=== PATIENT | male | born 1965 | race Caucasian/White ===

== ENCOUNTER 2018-12-19 17:51 | Inpatient (IN) ==
[2018-12-19] MEDS ORDERED: PIPERACILLIN/TAZOBACTAM 3,375 MG in SODIUM CHLORIDE 0.9% 100 ML IV STA (19:01)
[2018-12-19] MEDS ORDERED: SODIUM CHLORIDE 0.9% 500 ML IV STA (19:01)
[2018-12-19] MEDS ORDERED: ONDANSETRON 4 MG/2 ML VIAL IV STA (19:56)
[2018-12-19 20:04] LABS: Basophils % 0.2 % (0.0-0.8); Hematocrit 45.1 VOL% (42.0-52.0); Hemoglobin 14.4 GM/DL (14.0-18.0); Immature Granulocytes % 0.7 %; Immature Granulocytes Absolute 0.11 #; Lymphocytes # 0.3 10*3/uL (1.4-4.0); Lymphocytes % 1.7 % (21.2-54.2); Mean Corpuscular HGB Conc 31.9 GM/DL (32-36); Mean Corpuscular Volume 88.6 FL (87-102); Monocytes % 3.1 % (1.7-12.7); Neutrophils % 94.3 % (38.7-73.9); Platelet Count 248 T/CUMM (130-400); Red Blood Count 5.09 MC/CUMM (3.8-5.5); Red Cell Distribution Width 13.4 % (9.3-17.3); White Blood Count 16.9 T/CUMM (4-12)
[2018-12-19 20:23] LABS: Albumin 3.4 G/DL (3.4-5.0); Bilirubin,Total 0.9 MG/DL (0.2-1.0); Calcium 8.4 MG/DL (8.5-10.1); Osmolality,Calculated 259.8 MOS/KG (273-304); Total Protein 7.1 G/DL (6.4-8.3)
[2018-12-19 20:27] LABS: Amylase 19 U/L (25-115); Troponin I < 0.015 NG/ML (0.00-0.045)
[2018-12-19 20:44] LABS: Apearance,Urine Slightly Hazy (Clear); Bilirubin,Urine Negative (Negative); Blood, Urine Small mg/dL (Negative); Glucose,Urine (UA) Negative (Negative); Ketones,Urine 80 mg/dL (Negative); Mucus,Urine Many /LPF (Occasional); Nitrite,Urine Negative (Negative); Protein,Urine 100 MG/DL; RBC,Urine 18 /HPF (0-4); Squamous Epithelial Cell,Urine Occasional /HPF (0-10); Urine Specific Gravity 1.026 (1.001-1.035); WBC,Urine 1 /HPF (0-6)
[2018-12-19 20:45] LABS: Urine Color Yellow (Yellow)
[2018-12-19] MEDS ORDERED: CEFTAROLINE 600 MG in SODIUM CHLORIDE 0.9% 100 ML IV STA (20:59)
[2018-12-19 21:36] LABS: Microcytosis Slight; Segmented Neutrophils 92 % (50-85); Total Cells Counted 100
[2018-12-19 21:37] LABS: Platelet Estimate Adequate; Polychromasia Few; Stomatocytes 1+
[2018-12-19] MEDS: SODIUM CHLORIDE 0.9% 1,000 ML IV SCH (22:30)
[2018-12-19] MEDS: ENOXAPARIN 40 MG/0.4 ML SYRINGE SUBCUT SCH (22:30)
[2018-12-19] MEDS: KETOROLAC 15 MG/1 ML VIAL IV SCH (23:03)
[2018-12-20] MEDS ORDERED: CLINDAMYCIN 300 MG CAPSULE PO SCH
[2018-12-20] MEDS: VANCOMYCIN INJ 1,500 MG in SODIUM CHLORIDE 0.9% 500 ML IV SCH ×2 (00:40→14:54)
[2018-12-20] MEDS: ONDANSETRON 4 MG/2 ML VIAL IV PRN ×3 (00:47→15:00)
[2018-12-20] MEDS: KETOROLAC 15 MG/1 ML VIAL IV SCH ×3 (05:21→18:14)
[2018-12-20 05:52] LABS: Basophils % 0.2 % (0.0-0.8); Hematocrit 41.6 VOL% (42.0-52.0); Hemoglobin 13.1 GM/DL (14.0-18.0); Immature Granulocytes % 0.6 %; Immature Granulocytes Absolute 0.08 #; Lymphocytes # 0.4 10*3/uL (1.4-4.0); Lymphocytes % 3.5 % (21.2-54.2); Mean Corpuscular HGB Conc 31.5 GM/DL (32-36); Mean Corpuscular Volume 88.9 FL (87-102); Mean Platelet Volume 10.6 FL (9.6-12.0); Monocytes % 4.2 % (1.7-12.7); Neutrophils % 91.5 % (38.7-73.9); Platelet Count 208 T/CUMM (130-400); Red Blood Count 4.68 MC/CUMM (3.8-5.5); Red Cell Distribution Width 13.6 % (9.3-17.3); White Blood Count 12.6 T/CUMM (4-12)
[2018-12-20 06:10] LABS: Calcium 8.2 MG/DL (8.5-10.1); Osmolality,Calculated 262.5 MOS/KG (273-304)
[2018-12-20 06:16] LABS: Band Neutrophils 2 % (0-10); Hypochromasia 1+; Lymphocytes 3 % (20-55); Platelet Estimate Adequate; Segmented Neutrophils 87 % (50-85); Total Cells Counted 100
[2018-12-20 06:17] LABS: Microcytosis Slight
[2018-12-20] MEDS: CYCLOBENZAPRINE 10 MG TABLET PO SCH ×2 (10:33→20:59)
[2018-12-20] MEDS: GABAPENTIN 300 MG CAPSULE PO SCH ×2 (10:33→20:54)
[2018-12-20] MEDS: LITHIUM 300 MG CAPSULE PO SCH ×3 (10:34→20:54)
[2018-12-20] MEDS: SODIUM CHLORIDE 0.9% 1,000 ML IV SCH ×3 (10:34→20:54)
[2018-12-20] MEDS: ACETAMINOPHEN 325 MG TABLET PO PRN (19:19)
[2018-12-20] MEDS: ENOXAPARIN 40 MG/0.4 ML SYRINGE SUBCUT SCH (20:59)
[2018-12-21] MEDS: KETOROLAC 15 MG/1 ML VIAL IV SCH ×5 (00:17→23:46)
[2018-12-21] MEDS: VANCOMYCIN INJ 1,500 MG in SODIUM CHLORIDE 0.9% 500 ML IV SCH ×2 (00:18→11:50)
[2018-12-21] MEDS: SODIUM CHLORIDE 0.9% 1,000 ML IV SCH ×2 (06:19→21:26)
[2018-12-21] MEDS: GABAPENTIN 300 MG CAPSULE PO SCH ×2 (09:55→21:20)
[2018-12-21] MEDS: LITHIUM 300 MG CAPSULE PO SCH ×3 (09:55→21:25)
[2018-12-21] MEDS: CYCLOBENZAPRINE 10 MG TABLET PO SCH ×2 (09:55→21:24)
[2018-12-21] MEDS: cefTAZidime 1,000 MG in SYRINGE 1 EACH IV SCH ×2 (10:26→18:00)
[2018-12-21] MEDS: ACETAMINOPHEN 325 MG TABLET PO PRN ×2 (11:51→21:29)
[2018-12-21] MEDS: ENOXAPARIN 40 MG/0.4 ML SYRINGE SUBCUT SCH (21:25)
[2018-12-22] MEDS: VANCOMYCIN INJ 1,500 MG in SODIUM CHLORIDE 0.9% 500 ML IV SCH ×3 (00:17→23:24)
[2018-12-22] MEDS: cefTAZidime 1,000 MG in SYRINGE 1 EACH IV SCH ×3 (02:34→17:57)
[2018-12-22 04:55] LABS: Basophils % 0.3 % (0.0-0.8); Eosinophils # 0.3 10*3/uL (0.0-0.87); Eosinophils % 2.3 % (0.00-10.9); Hemoglobin 12.4 GM/DL (14.0-18.0); Immature Granulocytes % 0.3 %; Immature Granulocytes Absolute 0.03 #; Lymphocytes # 1.2 10*3/uL (1.4-4.0); Mean Corpuscular HGB Conc 31.8 GM/DL (32-36); Mean Corpuscular Volume 89.7 FL (87-102); Mean Platelet Volume 10.7 FL (9.6-12.0); Monocytes % 8.4 % (1.7-12.7); Neutrophils % 78.7 % (38.7-73.9); Platelet Count 227 T/CUMM (130-400); Red Blood Count 4.35 MC/CUMM (3.8-5.5); Red Cell Distribution Width 13.7 % (9.3-17.3); White Blood Count 11.6 T/CUMM (4-12)
[2018-12-22 05:37] LABS: Calcium 8.5 MG/DL (8.5-10.1); Osmolality,Calculated 280.1 MOS/KG (273-304)
[2018-12-22] MEDS: KETOROLAC 15 MG/1 ML VIAL IV SCH ×4 (06:05→23:16)
[2018-12-22] MEDS: SODIUM CHLORIDE 0.9% 1,000 ML IV SCH (06:06)
[2018-12-22] MEDS ORDERED: POTASSIUM CHLORIDE 20 MEQ TABLET PO ONE (08:45)
[2018-12-22] MEDS: CYCLOBENZAPRINE 10 MG TABLET PO SCH ×2 (09:54→21:12)
[2018-12-22] MEDS: GABAPENTIN 300 MG CAPSULE PO SCH ×2 (09:54→21:12)
[2018-12-22] MEDS: LITHIUM 300 MG CAPSULE PO SCH ×3 (09:54→21:12)
[2018-12-22] MEDS: ACETAMINOPHEN 325 MG TABLET PO PRN (16:33)
[2018-12-22] MEDS: ENOXAPARIN 40 MG/0.4 ML SYRINGE SUBCUT SCH (21:15)
[2018-12-23] MEDS: cefTAZidime 1,000 MG in SYRINGE 1 EACH IV SCH ×3 (01:43→17:45)
[2018-12-23 06:02] LABS: Basophils % 0.3 % (0.0-0.8); Eosinophils # 0.3 10*3/uL (0.0-0.87); Eosinophils % 2.3 % (0.00-10.9); Hematocrit 38.7 VOL% (42.0-52.0); Hemoglobin 12.3 GM/DL (14.0-18.0); Immature Granulocytes % 0.6 %; Immature Granulocytes Absolute 0.07 #; Lymphocytes # 0.8 10*3/uL (1.4-4.0); Lymphocytes % 7.4 % (21.2-54.2); Mean Corpuscular HGB Conc 31.8 GM/DL (32-36); Mean Corpuscular Volume 88.6 FL (87-102); Mean Platelet Volume 9.9 FL (9.6-12.0); Monocytes % 10.2 % (1.7-12.7); Neutrophils % 79.2 % (38.7-73.9); Platelet Count 261 T/CUMM (130-400); Red Blood Count 4.37 MC/CUMM (3.8-5.5); Red Cell Distribution Width 13.7 % (9.3-17.3); White Blood Count 10.9 T/CUMM (4-12)
[2018-12-23] MEDS: KETOROLAC 15 MG/1 ML VIAL IV SCH ×5 (06:21→22:09)
[2018-12-23 06:39] LABS: Calcium 8.6 MG/DL (8.5-10.1); Osmolality,Calculated 270.8 MOS/KG (273-304)
[2018-12-23] MEDS ORDERED: POTASSIUM CHLORIDE 20 MEQ TABLET PO ONE (09:00)
[2018-12-23] MEDS: GABAPENTIN 300 MG CAPSULE PO SCH ×2 (09:10→21:48)
[2018-12-23] MEDS: LITHIUM 300 MG CAPSULE PO SCH ×3 (09:10→21:48)
[2018-12-23] MEDS: CYCLOBENZAPRINE 10 MG TABLET PO SCH (09:10)
[2018-12-23] MEDS: LINEZOLID INJ 600 MG in PREMIX 1 EACH IV SCH (11:46)
[2018-12-23] MEDS: ENOXAPARIN 40 MG/0.4 ML SYRINGE SUBCUT SCH (21:48)
[2018-12-24] MEDS: LINEZOLID INJ 600 MG in PREMIX 1 EACH IV SCH ×3 (01:02→23:38)
[2018-12-24] MEDS: cefTAZidime 1,000 MG in SYRINGE 1 EACH IV SCH ×3 (01:02→17:45)
[2018-12-24] MEDS: KETOROLAC 15 MG/1 ML VIAL IV SCH ×3 (05:04→17:41)
[2018-12-24 05:24] LABS: Basophils % 0.2 % (0.0-0.8); Eosinophils # 0.3 10*3/uL (0.0-0.87); Eosinophils % 3.3 % (0.00-10.9); Hemoglobin 12.6 GM/DL (14.0-18.0); Immature Granulocytes % 0.7 %; Immature Granulocytes Absolute 0.07 #; Lymphocytes % 10.1 % (21.2-54.2); Mean Corpuscular HGB Conc 31.5 GM/DL (32-36); Mean Corpuscular Volume 88.7 FL (87-102); Mean Platelet Volume 10.2 FL (9.6-12.0); Monocytes % 11.7 % (1.7-12.7); Platelet Count 290 T/CUMM (130-400); Red Blood Count 4.51 MC/CUMM (3.8-5.5); Red Cell Distribution Width 13.6 % (9.3-17.3); White Blood Count 9.9 T/CUMM (4-12)
[2018-12-24 06:40] LABS: Calcium 8.8 MG/DL (8.5-10.1); Osmolality,Calculated 272.7 MOS/KG (273-304)
[2018-12-24] MEDS: GABAPENTIN 300 MG CAPSULE PO SCH ×2 (09:59→20:32)
[2018-12-24] MEDS: LITHIUM 300 MG CAPSULE PO SCH ×3 (10:02→20:32)
[2018-12-24] MEDS: amLODIPine 5 MG TABLET PO SCH (10:14)
[2018-12-24] MEDS: ACETAMINOPHEN 325 MG TABLET PO PRN (13:16)
[2018-12-24] MEDS: BISACODYL 5 MG TABLET PO PRN (16:32)
[2018-12-24] MEDS: ENOXAPARIN 40 MG/0.4 ML SYRINGE SUBCUT SCH (20:31)
[2018-12-24] MEDS: ONDANSETRON 4 MG/2 ML VIAL IV PRN (23:51)
[2018-12-25] MEDS: cefTAZidime 1,000 MG in SYRINGE 1 EACH IV SCH ×4 (01:53→18:46)
[2018-12-25 04:39] LABS: Basophils % 0.4 % (0.0-0.8); Eosinophils # 0.4 10*3/uL (0.0-0.87); Eosinophils % 3.6 % (0.00-10.9); Hematocrit 37.5 VOL% (42.0-52.0); Hemoglobin 11.9 GM/DL (14.0-18.0); Lymphocytes # 1.1 10*3/uL (1.4-4.0); Lymphocytes % 11.3 % (21.2-54.2); Mean Corpuscular HGB Conc 31.7 GM/DL (32-36); Mean Corpuscular Volume 87.6 FL (87-102); Mean Platelet Volume 9.8 FL (9.6-12.0); Monocytes % 9.1 % (1.7-12.7); Neutrophils % 74.6 % (38.7-73.9); Platelet Count 346 T/CUMM (130-400); Red Blood Count 4.28 MC/CUMM (3.8-5.5); Red Cell Distribution Width 13.4 % (9.3-17.3)
[2018-12-25 05:37] LABS: Calcium 8.9 MG/DL (8.5-10.1); Osmolality,Calculated 274.5 MOS/KG (273-304)
[2018-12-25] MEDS: ACETAMINOPHEN 325 MG TABLET PO PRN ×2 (07:00→18:46)
[2018-12-25] MEDS: amLODIPine 5 MG TABLET PO SCH (08:42)
[2018-12-25] MEDS: LITHIUM 300 MG CAPSULE PO SCH ×3 (08:42→21:35)
[2018-12-25] MEDS: GABAPENTIN 300 MG CAPSULE PO SCH ×2 (08:42→21:34)
[2018-12-25] MEDS ORDERED: cefTAZidime 1,000 MG in SYRINGE 1 EACH IV SCH (10:30)
[2018-12-25] MEDS: LINEZOLID INJ 600 MG in PREMIX 1 EACH IV SCH (11:43)
[2018-12-25] MEDS: ONDANSETRON 4 MG/2 ML VIAL IV PRN (18:46)
[2018-12-25] MEDS: ENOXAPARIN 40 MG/0.4 ML SYRINGE SUBCUT SCH (21:35)
[2018-12-26] MEDS: LINEZOLID INJ 600 MG in PREMIX 1 EACH IV SCH ×2 (01:07→11:34)
[2018-12-26] MEDS: ACETAMINOPHEN 325 MG TABLET PO PRN ×3 (03:39→16:29)
[2018-12-26] MEDS: cefTAZidime 1,000 MG in SYRINGE 1 EACH IV SCH (03:40)
[2018-12-26 04:54] LABS: Basophils % 0.3 % (0.0-0.8); Eosinophils # 0.4 10*3/uL (0.0-0.87); Eosinophils % 4.4 % (0.00-10.9); Hematocrit 39.8 VOL% (42.0-52.0); Hemoglobin 12.6 GM/DL (14.0-18.0); Immature Granulocytes % 0.8 %; Immature Granulocytes Absolute 0.07 #; Lymphocytes # 1.2 10*3/uL (1.4-4.0); Lymphocytes % 13.3 % (21.2-54.2); Mean Corpuscular HGB Conc 31.7 GM/DL (32-36); Mean Corpuscular Volume 88.6 FL (87-102); Mean Platelet Volume 9.8 FL (9.6-12.0); Monocytes % 10.1 % (1.7-12.7); Neutrophils % 71.1 % (38.7-73.9); Platelet Count 382 T/CUMM (130-400); Red Blood Count 4.49 MC/CUMM (3.8-5.5); Red Cell Distribution Width 13.3 % (9.3-17.3); White Blood Count 8.6 T/CUMM (4-12)
[2018-12-26 05:28] LABS: Osmolality,Calculated 272.7 MOS/KG (273-304)
[2018-12-26] MEDS: GABAPENTIN 300 MG CAPSULE PO SCH ×2 (08:48→21:21)
[2018-12-26] MEDS: LITHIUM 300 MG CAPSULE PO SCH ×3 (08:48→21:21)
[2018-12-26] MEDS: amLODIPine 5 MG TABLET PO SCH (08:49)
[2018-12-26] MEDS: cefTRIAXone 2,000 MG in SYRINGE 1 EACH IV SCH (11:30)
[2018-12-26] MEDS: ENOXAPARIN 40 MG/0.4 ML SYRINGE SUBCUT SCH (21:20)
[2018-12-26] MEDS: BISACODYL 5 MG TABLET PO PRN (21:21)
[2018-12-26] MEDS: ONDANSETRON 4 MG/2 ML VIAL IV PRN (23:14)
[2018-12-27] MEDS: LINEZOLID INJ 600 MG in PREMIX 1 EACH IV SCH ×2 (00:10→12:11)
[2018-12-27 05:18] LABS: Basophils % 0.4 % (0.0-0.8); Eosinophils # 0.4 10*3/uL (0.0-0.87); Eosinophils % 3.4 % (0.00-10.9); Hematocrit 42.1 VOL% (42.0-52.0); Immature Granulocytes % 0.9 %; Lymphocytes # 1.2 10*3/uL (1.4-4.0); Lymphocytes % 11.1 % (21.2-54.2); Mean Corpuscular HGB Conc 30.9 GM/DL (32-36); Mean Platelet Volume 9.6 FL (9.6-12.0); Monocytes % 9.5 % (1.7-12.7); Neutrophils % 74.7 % (38.7-73.9); Platelet Count 409 T/CUMM (130-400); Red Blood Count 4.73 MC/CUMM (3.8-5.5); Red Cell Distribution Width 13.4 % (9.3-17.3); White Blood Count 10.6 T/CUMM (4-12)
[2018-12-27 05:38] LABS: Calcium 9.2 MG/DL (8.5-10.1); Osmolality,Calculated 270.8 MOS/KG (273-304)
[2018-12-27] MEDS: amLODIPine 5 MG TABLET PO SCH (08:34)
[2018-12-27] MEDS: GABAPENTIN 300 MG CAPSULE PO SCH (08:34)
[2018-12-27] MEDS: LITHIUM 300 MG CAPSULE PO SCH (08:35)
[2018-12-27] MEDS: cefTRIAXone 2,000 MG in SYRINGE 1 EACH IV SCH (12:11)
[2018-12-27 12:49] VITALS: BP 143/93
[2018-12-27] MEDS: ACETAMINOPHEN 325 MG TABLET PO PRN (15:29)
== END 2018-12-27 16:20 | disposition home or self-care (01) | DRG 603 ==
LOC: N.ED 17:51 → N.EDINP 21:13 → N.3E 22:08
PROVIDERS: ADMIT Internal Medicine; ATTEND Internal Medicine

== ENCOUNTER 2019-04-14 12:53 | Inpatient (IN) ==
[2019-04-14 15:13] LABS: Basophils # 0.1 10*3/uL (0.0-0.2); Basophils % 0.9 % (0.0-0.8); Eosinophils # 0.3 10*3/uL (0.0-0.87); Eosinophils % 3.6 % (0.00-10.9); Hematocrit 47.1 VOL% (42.0-52.0); Hemoglobin 15.2 GM/DL (14.0-18.0); Immature Granulocytes % 0.3 %; Immature Granulocytes Absolute 0.02 #; Lymphocytes # 1.7 10*3/uL (1.4-4.0); Lymphocytes % 21.3 % (21.2-54.2); Mean Corpuscular HGB Conc 32.3 GM/DL (32-36); Mean Corpuscular Volume 87.9 FL (87-102); Mean Platelet Volume 9.9 FL (9.6-12.0); Monocytes % 10.6 % (1.7-12.7); Neutrophils % 63.3 % (38.7-73.9); Platelet Count 317 T/CUMM (130-400); Red Blood Count 5.36 MC/CUMM (3.8-5.5); Red Cell Distribution Width 13.6 % (9.3-17.3); White Blood Count 7.7 T/CUMM (4-12)
[2019-04-14 15:33] LABS: Calcium 9.1 MG/DL (8.5-10.1); Osmolality,Calculated 273.7 MOS/KG (273-304)
[2019-04-14] MEDS ORDERED: PROMETHAZINE 25 MG TABLET PO PRN (16:32)
[2019-04-14] MEDS ORDERED: ONDANSETRON 4 MG/2 ML VIAL IV PRN (16:32)
[2019-04-14] MEDS ORDERED: HydrOXYzine PAMOATE 50 MG CAPSULE PO PRN (16:34)
[2019-04-14] MEDS ORDERED: AZTREONAM 2,000 MG in SYRINGE 1 EACH IV STA (16:37)
[2019-04-14] MEDS ORDERED: LISINOPRIL 10 MG TABLET PO STA (18:50)
[2019-04-14] MEDS ORDERED: VANCOMYCIN INJ 2,500 MG in SODIUM CHLORIDE 0.9% 500 ML IV ONE (20:30)
[2019-04-14] MEDS ORDERED: INFLUENZA VIRUS VACCINE 0.5 ML SYRINGE IM ONE (20:56)
[2019-04-14] MEDS: SODIUM CHLORIDE 0.9% 1,000 ML IV SCH (21:30)
[2019-04-14] MEDS: HEPARIN 5,000 UNIT/1 ML VIAL SUBCUT SCH (21:34)
[2019-04-14] MEDS: IBUPROFEN 800 MG TABLET PO SCH (21:35)
[2019-04-14] MEDS: LITHIUM 300 MG CAPSULE PO SCH (21:35)
[2019-04-14] MEDS: CYCLOBENZAPRINE 10 MG TABLET PO SCH (21:35)
[2019-04-14] MEDS: GABAPENTIN 300 MG CAPSULE PO SCH (22:38)
[2019-04-15] MEDS: AZTREONAM 2,000 MG in SYRINGE 1 EACH IV SCH ×4 (01:45→18:14)
[2019-04-15] MEDS: SODIUM CHLORIDE 0.9% 1,000 ML IV SCH ×2 (02:04→19:30)
[2019-04-15] MEDS: HEPARIN 5,000 UNIT/1 ML VIAL SUBCUT SCH ×3 (04:27→20:28)
[2019-04-15 04:50] LABS: Basophils % 0.6 % (0.0-0.8); Eosinophils # 0.3 10*3/uL (0.0-0.87); Eosinophils % 4.7 % (0.00-10.9); Hematocrit 43.1 VOL% (42.0-52.0); Immature Granulocytes % 0.3 %; Immature Granulocytes Absolute 0.02 #; Lymphocytes # 1.8 10*3/uL (1.4-4.0); Lymphocytes % 27.6 % (21.2-54.2); Mean Corpuscular HGB Conc 32.5 GM/DL (32-36); Mean Corpuscular Volume 87.6 FL (87-102); Mean Platelet Volume 10.4 FL (9.6-12.0); Monocytes % 10.4 % (1.7-12.7); Neutrophils % 56.4 % (38.7-73.9); Platelet Count 292 T/CUMM (130-400); Red Blood Count 4.92 MC/CUMM (3.8-5.5); Red Cell Distribution Width 13.5 % (9.3-17.3); White Blood Count 6.6 T/CUMM (4-12)
[2019-04-15 05:14] LABS: Bilirubin,Total 0.4 MG/DL (0.2-1.0); Calcium 8.5 MG/DL (8.5-10.1); Osmolality,Calculated 284.1 MOS/KG (273-304); Risk Ratio 8.43; Total Protein 6.3 G/DL (6.4-8.3); VLDL CHOLESTEROL 174.2 MG/DL
[2019-04-15 07:00] LABS: Apearance,Urine CLEAR (Clear); Bilirubin,Urine Negative (Negative); Blood, Urine Negative (Negative); Glucose,Urine (UA) Negative (Negative); Ketones,Urine 5 mg/dL (Negative); Mucus,Urine Occasional /LPF (Occasional); Nitrite,Urine Negative (Negative); Protein,Urine 30 MG/DL; RBC,Urine <1 /HPF (0-4); Urine Color Yellow (Yellow); Urine Specific Gravity 1.032 (1.001-1.035); WBC,Urine 1 /HPF (0-6)
[2019-04-15] MEDS ORDERED: amLODIPine 5 MG TABLET PO SCH (09:00)
[2019-04-15] MEDS: VANCOMYCIN INJ 1,750 MG in SODIUM CHLORIDE 0.9% 500 ML IV SCH ×2 (10:03→20:24)
[2019-04-15] MEDS: amLODIPine 5 MG TABLET PO SCH (10:04)
[2019-04-15] MEDS: GABAPENTIN 300 MG CAPSULE PO SCH ×2 (10:06→20:25)
[2019-04-15] MEDS: LITHIUM 300 MG CAPSULE PO SCH ×3 (10:06→20:25)
[2019-04-15] MEDS: CYCLOBENZAPRINE 10 MG TABLET PO SCH ×2 (10:06→20:25)
[2019-04-15] MEDS: MELOXICAM 7.5 MG TABLET PO SCH (10:07)
[2019-04-15] MEDS: LISINOPRIL 10 MG TABLET PO SCH (10:07)
[2019-04-15] MEDS: IBUPROFEN 800 MG TABLET PO SCH ×2 (10:07→20:25)
[2019-04-16] MEDS: SODIUM CHLORIDE 0.9% 1,000 ML IV SCH ×2 (04:38→17:23)
[2019-04-16] MEDS: HEPARIN 5,000 UNIT/1 ML VIAL SUBCUT SCH ×3 (04:38→21:13)
[2019-04-16] MEDS: AZTREONAM 2,000 MG in SYRINGE 1 EACH IV SCH ×2 (05:55)
[2019-04-16 06:06] LABS: Basophils # 0.1 10*3/uL (0.0-0.2); Basophils % 0.8 % (0.0-0.8); Eosinophils # 0.3 10*3/uL (0.0-0.87); Eosinophils % 5.3 % (0.00-10.9); Hematocrit 43.3 VOL% (42.0-52.0); Hemoglobin 13.7 GM/DL (14.0-18.0); Immature Granulocytes % 0.3 %; Immature Granulocytes Absolute 0.02 #; Lymphocytes # 1.7 10*3/uL (1.4-4.0); Lymphocytes % 27.9 % (21.2-54.2); Mean Corpuscular HGB Conc 31.6 GM/DL (32-36); Mean Corpuscular Volume 87.7 FL (87-102); Mean Platelet Volume 10.1 FL (9.6-12.0); Monocytes % 9.6 % (1.7-12.7); Neutrophils % 56.1 % (38.7-73.9); Platelet Count 248 T/CUMM (130-400); Red Blood Count 4.94 MC/CUMM (3.8-5.5); Red Cell Distribution Width 13.6 % (9.3-17.3); White Blood Count 6.1 T/CUMM (4-12)
[2019-04-16 06:22] LABS: Alanine Aminotransferase 32 U/L (16-61); Alkaline Phosphatase 117 U/L (45-117); Aspartate Amino Transferase 19 U/L (0-37); Bilirubin,Total < 0.39 MG/DL (0.2-1.0); Blood Urea Nitrogen 10 MG/DL (7-18); Calcium 8.9 MG/DL (8.5-10.1); Estimated Glom Filtration Rate 130 ML/MIN; Glucose 90 MG/DL (74-106); Osmolality,Calculated 275.5 MOS/KG (273-304); Total Protein 6.1 G/DL (6.4-8.3)
[2019-04-16] MEDS: LITHIUM 300 MG CAPSULE PO SCH ×3 (09:17→21:13)
[2019-04-16] MEDS: CYCLOBENZAPRINE 10 MG TABLET PO SCH ×2 (09:17→21:14)
[2019-04-16] MEDS: MELOXICAM 7.5 MG TABLET PO SCH (09:17)
[2019-04-16] MEDS: IBUPROFEN 800 MG TABLET PO SCH ×2 (09:18→21:13)
[2019-04-16] MEDS: GABAPENTIN 300 MG CAPSULE PO SCH ×2 (09:18→21:14)
[2019-04-16] MEDS: LISINOPRIL 10 MG TABLET PO SCH (09:19)
[2019-04-16] MEDS: amLODIPine 5 MG TABLET PO SCH (09:26)
[2019-04-16] MEDS: CEFEPIME 1,000 MG in SODIUM CHLORIDE 0.9% 100 ML IV SCH ×2 (11:52→17:23)
[2019-04-16] MEDS: VANCOMYCIN INJ 1,750 MG in SODIUM CHLORIDE 0.9% 500 ML IV SCH (13:02)
[2019-04-17] MEDS: CEFEPIME 1,000 MG in SODIUM CHLORIDE 0.9% 100 ML IV SCH ×4 (00:17→18:01)
[2019-04-17] MEDS: VANCOMYCIN INJ 1,750 MG in SODIUM CHLORIDE 0.9% 500 ML IV SCH ×2 (01:49→14:31)
[2019-04-17] MEDS: HEPARIN 5,000 UNIT/1 ML VIAL SUBCUT SCH ×3 (03:44→20:51)
[2019-04-17 06:23] LABS: Basophils % 0.6 % (0.0-0.8); Eosinophils # 0.3 10*3/uL (0.0-0.87); Eosinophils % 5.1 % (0.00-10.9); Hematocrit 43.3 VOL% (42.0-52.0); Immature Granulocytes % 0.3 %; Immature Granulocytes Absolute 0.02 #; Lymphocytes # 1.8 10*3/uL (1.4-4.0); Lymphocytes % 27.7 % (21.2-54.2); Mean Corpuscular HGB Conc 32.3 GM/DL (32-36); Mean Corpuscular Volume 87.3 FL (87-102); Mean Platelet Volume 10.4 FL (9.6-12.0); Monocytes % 9.2 % (1.7-12.7); Neutrophils % 57.1 % (38.7-73.9); Platelet Count 270 T/CUMM (130-400); Red Blood Count 4.96 MC/CUMM (3.8-5.5); Red Cell Distribution Width 13.7 % (9.3-17.3); White Blood Count 6.5 T/CUMM (4-12)
[2019-04-17 06:45] LABS: Alanine Aminotransferase 38 U/L (16-61); Albumin 2.9 G/DL (3.4-5.0); Alkaline Phosphatase 109 U/L (45-117); Aspartate Amino Transferase 26 U/L (0-37); Bilirubin,Total < 0.39 MG/DL (0.2-1.0); Blood Urea Nitrogen 12 MG/DL (7-18); Calcium 8.7 MG/DL (8.5-10.1); Estimated Glom Filtration Rate 137 ML/MIN; Glucose 88 MG/DL (74-106); Osmolality,Calculated 275.5 MOS/KG (273-304); Total Protein 6.1 G/DL (6.4-8.3)
[2019-04-17] MEDS: GABAPENTIN 300 MG CAPSULE PO SCH ×2 (09:09→20:51)
[2019-04-17] MEDS: IBUPROFEN 800 MG TABLET PO SCH ×2 (09:09→20:51)
[2019-04-17] MEDS: LISINOPRIL 10 MG TABLET PO SCH (09:10)
[2019-04-17] MEDS: CYCLOBENZAPRINE 10 MG TABLET PO SCH ×2 (09:10→20:51)
[2019-04-17] MEDS: amLODIPine 5 MG TABLET PO SCH (09:11)
[2019-04-17] MEDS: LITHIUM 300 MG CAPSULE PO SCH ×3 (09:33→20:51)
[2019-04-17] MEDS: SODIUM CHLORIDE 0.9% 1,000 ML IV SCH ×2 (20:50→22:49)
[2019-04-18] MEDS: CEFEPIME 1,000 MG in SODIUM CHLORIDE 0.9% 100 ML IV SCH ×4 (00:30→20:34)
[2019-04-18 02:22] LABS: Basophils # 0.1 10*3/uL (0.0-0.2); Basophils % 0.7 % (0.0-0.8); Eosinophils # 0.4 10*3/uL (0.0-0.87); Eosinophils % 5.2 % (0.00-10.9); Hematocrit 41.6 VOL% (42.0-52.0); Hemoglobin 13.3 GM/DL (14.0-18.0); Immature Granulocytes % 0.1 %; Immature Granulocytes Absolute 0.01 #; Lymphocytes # 1.7 10*3/uL (1.4-4.0); Lymphocytes % 25.6 % (21.2-54.2); Mean Corpuscular Volume 87.4 FL (87-102); Mean Platelet Volume 10.4 FL (9.6-12.0); Monocytes % 9.3 % (1.7-12.7); Neutrophils % 59.1 % (38.7-73.9); Platelet Count 259 T/CUMM (130-400); Red Blood Count 4.76 MC/CUMM (3.8-5.5); Red Cell Distribution Width 13.6 % (9.3-17.3); White Blood Count 6.8 T/CUMM (4-12)
[2019-04-18] MEDS: VANCOMYCIN INJ 1,750 MG in SODIUM CHLORIDE 0.9% 500 ML IV SCH ×2 (02:35→16:16)
[2019-04-18 02:43] LABS: Alanine Aminotransferase 77 U/L (16-61); Alkaline Phosphatase 115 U/L (45-117); Aspartate Amino Transferase 60 U/L (0-37); Bilirubin,Total < 0.39 MG/DL (0.2-1.0); Blood Urea Nitrogen 12 MG/DL (7-18); Calcium 8.6 MG/DL (8.5-10.1); Estimated Glom Filtration Rate 115 ML/MIN; Glucose 134 MG/DL (74-106); Osmolality,Calculated 278.5 MOS/KG (273-304); Total Protein 6.3 G/DL (6.4-8.3)
[2019-04-18] MEDS: HEPARIN 5,000 UNIT/1 ML VIAL SUBCUT SCH ×3 (03:50→20:34)
[2019-04-18] MEDS: CYCLOBENZAPRINE 10 MG TABLET PO SCH ×2 (08:47→20:33)
[2019-04-18] MEDS: LITHIUM 300 MG CAPSULE PO SCH ×3 (08:47→20:33)
[2019-04-18] MEDS: amLODIPine 5 MG TABLET PO SCH (08:48)
[2019-04-18] MEDS: IBUPROFEN 800 MG TABLET PO SCH ×2 (08:48→20:33)
[2019-04-18] MEDS: GABAPENTIN 300 MG CAPSULE PO SCH ×2 (08:48→20:33)
[2019-04-18] MEDS: LISINOPRIL 10 MG TABLET PO SCH (08:48)
[2019-04-18] MEDS: SODIUM CHLORIDE 0.9% 1,000 ML IV SCH (21:13)
[2019-04-19] MEDS: HEPARIN 5,000 UNIT/1 ML VIAL SUBCUT SCH (03:33)
[2019-04-19] MEDS: CEFEPIME 1,000 MG in SODIUM CHLORIDE 0.9% 100 ML IV SCH ×2 (03:33→09:44)
[2019-04-19] MEDS: VANCOMYCIN INJ 1,750 MG in SODIUM CHLORIDE 0.9% 500 ML IV SCH (04:50)
[2019-04-19] MEDS: IBUPROFEN 800 MG TABLET PO SCH (09:45)
[2019-04-19] MEDS: LITHIUM 300 MG CAPSULE PO SCH (09:45)
[2019-04-19] MEDS: GABAPENTIN 300 MG CAPSULE PO SCH (09:45)
[2019-04-19] MEDS: CYCLOBENZAPRINE 10 MG TABLET PO SCH (09:45)
[2019-04-19] MEDS: amLODIPine 5 MG TABLET PO SCH (09:47)
[2019-04-19] MEDS: LISINOPRIL 10 MG TABLET PO SCH (09:47)
[2019-04-19 12:21] VITALS: BP 148/86
== END 2019-04-19 13:32 | disposition home or self-care (01) | DRG 560 ==
LOC: N.ED 12:53 → SUATTDRO 16:39 → N.EDINP 16:39 → N.5E 20:01
PROVIDERS: ADMIT Internal Medicine; ATTEND Internal Medicine